=== PATIENT | female | born 1985 ===

== ENCOUNTER 2017-01-31 01:53 | Emergency (ER) | payer OTHER ==
[2017-01-31 03:12] VITALS: BMI 58.7
[2017-01-31] MEDS ORDERED: Betamethasone Soluspan 30 mg/5mL Inj Susp IM ONE (03:31)
[2017-01-31 03:37] LABS: RBC URINE 3 /hpf (0-3); URINE BACTERIA RARE (<OCC); URINE BILIRUBIN NEGATIVE (NEGATIVE); URINE BLOOD NEGATIVE (NEGATIVE); URINE COLOR STRAW (YELLOW); URINE GLUCOSE (UA) NEG (Normal); URINE KETONE NEGATIVE (NEGATIVE); URINE LEUKOCYTE ESTERASE LARGE Leu/uL (Negative); URINE PROTEIN NEGATIVE (NEGATIVE); URINE UROBILINOGEN 0.2-1.0 mg/dL (0.2-1.0); WBC CLUMPS FEW /hpf; WBC URINE 43 /hpf (0-5)
[2017-01-31] MEDS ORDERED: Magnesium Sul 40GM/1L SW 1,000 ML IV ONE (03:56)
[2017-01-31] MEDS ORDERED: Magnesium Sulfate 2 GM in Sodium Chloride 0.9% 100 ML IVPB ONE (04:00)
[2017-01-31 04:21] LABS: BASO % 0.3 % (0.0-2.0); EOS # 0.2 K/uL (0.0-0.7); EOS % 1.3 % (0.0-4.0); HEMATOCRIT 35.1 % (34.0-47.0); LYMPH % 7.3 % (20.0-40.0); MEAN CORPUSCULAR HGB CONC 32.9 g/dL (33.0-37.0); MEAN PLATELET VOLUME 8.9 fl (7.2-11.7); MONO # 1.1 K/uL (0.0-0.8); MONO % 7.5 % (0.0-10.0); NEUT # 11.9 K/uL (1.8-7.0); NEUT % 83.6 % (50.0-75.0); PLATELET COUNT 299 K/uL (130-400); RED CELL DISTRIBUTION WIDTH 15.7 % (11.5-14.5)
[2017-01-31 04:26] LABS: WHITE BLOOD COUNT 14.3 K/uL (4.8-10.8)
[2017-01-31] MEDS ORDERED: Lactated Ringer's 1,000 ML IV SCH (04:30)
--- NOTE | 2017-01-31 04:58 | US ---
EXAM: US , Transvaginal CLINICAL HISTORY: 31 years old, female; Pain; complicated by abdominal or pelvic pain; Gestational age or lmp: 26 weeks; ; Additional info: Pelvic pain/cervical dilation TECHNIQUE: Real-time endovaginal obstetrical ultrasound of the maternal pelvis with image documentation. Endovaginal imaging was used for better evaluation of the cervix. EXAM DATE/TIME: 01/31/2017 3:41 AM COMPARISON: No relevant prior studies available. FINDINGS: A limited exam only was performed, specifically to evaluate the cervix. The cervix is abnormally shortened, measuring 1.4 cm in length transvaginally. There is evidence of funneling. The upper cervix is fluid-filled and dilated, measuring 4 cm in width. Findings are compatible with cervical incompetence. No parts are seen within the upper cervix. The external cervical os appears closed. The fetus was not evaluated. The anatomy was not evaluated. IMPRESSION: Findings compatible with cervical incompetence. The cervix is abnormally shortened, 1.4 cm in length, and there is evidence of funneling. See above for remaining findings.
[2017-01-31 05:00] LABS: EOSINOPHIL 1 % (0-7); NEUTROPHIL 82 % (42-75); TOTAL CELLS COUNTED 100
--- NOTE | 2017-01-31 05:39 | OBHP ---
Datetime: 01/31/2017 02:30 IP Adm Impression: , intrauterine ; No Active Labor; Intact Membranes IP Admit Plan: Observation/Evaluation; Discharge home Admit Comment, IP Provider: 31 yr at 26wks GA , morbidly obese presents to [facility] with complaint of lower lateral pelvic pain which is intermittent early today and at its worse is a 7/10. Denies vag inal bleeding, LOF, ctx's. + movement. Patient obtains routine care with Dr. Sears , denies any complications or abnormal labs/tests with this . Patient has no other concerns or complaints at this time. care/course: per pt: morbidly obese- gained 21 lbs thus far, no complications/abnormal la bs or tests OBHx: none PMHx: none SurgHx: none SocHx: denies Etoh/smoking/drugs Meds: PNV, aspirin Allergies: Penicillin (patient states no hx of this allergy but saw this written in her chart at n ew PCP's) PE: VSS, patient in no acute distress Cardiac: S1 S2 normal, no murmurs/rubs or gallops Lungs: CTABL Abd: very obese, gravid, non-tender Ext: bilateral pitting edema +1 SSE: cervix short/dilated 1cm/membranes visualized A: IUP at 26wks, not in active labor, P: -Magnesium 4gm loading dose -Magnesium sulfate 2gm maintenance dose -Betamethasone 12mg IM -urinalysis - fibronectin -continuous monitoring -monitor labor progress Marni Sears M.D. PGY1 OB Hospitalist Addendum: Pt seen and examined by me. 31 yo G1 at 26 wks w/ pelvic pain, ctxns ev zoe 2-4 minutes. Speculum exam revealed bulging membranes, VE 1/short. CL 1.4 cm w/ funneling. FFN positive. Case discussed w/ Dr. Kearns. IV magnesium started. 1st dose of Betamethasone given. Pt to be [facility]. ([facility]) Pelvic Type - PN: Adequate Extremities - PN: Normal Abdomen - PN: Normal Back - PN: Normal Lungs - PN: Normal Heart - PN: Normal Thyroid - PN: Normal Neurologic - PN: Normal HEENT - PN: Normal General - PN: Normal FHR - Baseline A Provider: 140 Comments, ACOG Physical Exam: SSE: cervix short/dilated 1cm/membranes visualized Gestation - Est Wks by US: 26.0 Vital Signs Provider: Reviewed; Within Normal Limits IP Chief Complaint: Maternal discomfort NICHD Variability Prov Fetus A: Moderate 6-25bpm NICHD Accel Fetus A IP Provider: [id number] FHR Category Provider Fetus A: Category I NICHD Decel Fetus A IP Provider: None Dilatation, Provider: 0 Genitourinary Exam: Normal DTRs - PN: Normal
--- NOTE | 2017-01-31 06:58 | OBHP ---
Datetime: 01/31/2017 02:30 Admit Comment, IP Provider: 31 yr at 26wks GA , morbidly obese presents to [facility] with complaint of lower lateral pelvic pain which is intermittent early today and at its worse is a 7/10. Denies vag inal bleeding, LOF, ctx's. + movement. Patient obtains routine care with Dr. Sears , denies any complications or abnormal labs/tests with this . Patient has no other concerns or complaints at this time. care/course: per pt: morbidly obese- gained 21 lbs thus far, no complications/abnormal la bs or tests OBHx: none PMHx: none SurgHx: none SocHx: denies Etoh/smoking/drugs Meds: PNV, aspirin Allergies: Penicillin (patient states no hx of this allergy but saw this written in her chart at n ew PCP's) PE: VSS, patient in no acute distress Cardiac: S1 S2 normal, no murmurs/rubs or gallops Lungs: CTABL Abd: very obese, gravid, non-tender Ext: bilateral pitting edema +1 SSE: cervix short/dilated 1cm/membranes visualized A: IUP at 26wks, not in active labor, P: -Magnesium 4gm loading dose -Magnesium sulfate 2gm maintenance dose -Betamethasone 12mg IM -urinalysis - fibronectin -continuous monitoring -monitor labor progress Marni Sears M.D. PGY1 OB Hospitalist Addendum: Pt seen and examined by me. 31 yo G1 at 26 wks w/ pelvic pain, ctxns ev zoe 2-4 minutes. Speculum exam revealed bulging membranes, VE 1/short. CL 1.4 cm w/ funneling. FFN positive. Case discussed w/ Dr. Kearns. IV magnesium started. 1st dose of Betamethasone given. Pt to be transferred to [facility]. (ES) Addendum: Pt reports that her water broke on the bathroom floor. Nitrazine positive. Pt denies i ncreased pressure and pain. Pt sent to [facility]. (ES)
== END 2017-01-31 06:20 | disposition home or self-care (01) ==
LOC: H.EROB2 01:53
DX: O47.02 False labor before 37 completed weeks of gestation, second trimester (principal); Z3A.26 26 weeks gestation of pregnancy; O99.212 Obesity complicating pregnancy, second trimester; O26.872 Cervical shortening, second trimester

== ENCOUNTER 2018-10-04 11:34 | Emergency (ER) | payer OTHER ==
[2018-10-04 14:48] VITALS: BMI 50.3
[2018-10-04] MEDS ORDERED: Lactated Ringer's 1,000 ML IV SCH (15:00)
[2018-10-04 15:18] LABS: BASO % 0.2 % (0.0-2.0); EOS # 0.2 K/uL (0.0-0.7); EOS % 1.6 % (0.0-4.0); HEMOGLOBIN 11.8 g/dL (12.0-16.0); LYMPH % 8.9 % (20.0-40.0); MEAN CELL VOLUME 82.6 fl (81.0-99.0); MEAN CORPUSCULAR HEMOGLOBIN 26.2 pg (27.0-31.0); MEAN CORPUSCULAR HGB CONC 31.7 g/dL (33.0-37.0); MEAN PLATELET VOLUME 9.5 fl (7.2-11.7); MONO # 0.7 K/uL (0.0-0.8); MONO % 6.6 % (0.0-10.0); NEUT # 9.3 K/uL (1.8-7.0); NEUT % 82.7 % (50.0-75.0); NRBC % 0.2 % (0.0-0.0); PLATELET COUNT 298 K/uL (130-400); RBC 4.52 Mil/uL (3.80-5.20); WHITE BLOOD COUNT 11.2 K/uL (4.8-10.8)
[2018-10-04 16:43] LABS: BASOPHIL 1 % (0-2); EOSINOPHIL 2 % (0-7); LYMPHOCYTE 10 % (20-50); MONOCYTE 6 % (0-10); NEUTROPHIL 81 % (42-75); TOTAL CELLS COUNTED 100
[2018-10-04 16:44] LABS: ANISOCYTOSIS SLIGHT; LARGE PLATELETS PRESENT; PLATELET ESTIMATE NORMAL (NORMAL)
--- NOTE | 2018-10-04 17:42 | OBHP ---
Datetime: 10/04/2018 12:48 IP Adm Impression: , intrauterine IP Admit Plan: Observation/Evaluation Admit Comment, IP Provider: 32 YO with IUP at EGA 36 wks, who presents to [facility] for removal o f cerclage. Patient today states feeling well, denies VB, LOF, CONTX, LANDERS, dizziness, CP, SOB, dysuria , chills, fever, or other acute complaint at this time. Patient has h/o delivery of her first child at GA 26 wks 20 MO. Abdifatah reports she is receiving Progesterone shots once a week at this ti me. Patient reports +FM. ROS : unremarkable, except as per HPI. provider: Dr Sears. PMH: Obesity FMH: Father HTN SURG: Bariatric Sx ALL: NKA MEDS: PN Vitamin, Aspirin 81 PO QD LABS: Patient reports normla labs in currnt . PE GEN: NAD HEENT: NCAT RESP: CTA b/l CV: RRR, S1 S2 present normal ABD: Gravid EXT: LE edema, Apoorva's neg A/P 32 YO with IUP at EGA 36 wks, who presents to [facility] for removal of cerclage. Plan -Maternal VS monitoring -FHR monitoring -Cerclage removal -Observation and D/C planing Case seen and discussed with attending Dr Lorne Adair MD PGY1 Addendum by Dr. Pradhan: I have evalauted the patient independently and I agree with the above. See dictation Comments, ACOG Physical Exam: see triage comments IP Hx Assessment: The History has been Reviewed and is Current EGA AdmitDate IP: 36.2 Vital Signs Provider: Reviewed; Within Normal Limits IP Chief Complaint: Other
--- NOTE | 2018-10-04 19:09 | OBPN ---
Datetime: 10/04/2018 18:05 Contraction Comments Provider: Occasional FHR - Baseline A Provider: 120 IP Progress Note Comment: Patient re-evalauted about an hour after procedure finished - reports no a dditional signs/symptoms of labor. Occasional mild cramping, scant bleeding noted, no leaking, +FM VE= 120 mod barry, +accels no decels TOCO = occasional contractions VE = 1/thick/high A/P 1. patient not progressing in pre-term labor. Patient unchanged 1cm - FHR = 120 reactive and contr acting irregularly. Scant bleeding noted, nml considering extent of procedure. 2. Discussed with patient discharge instructions, to follow up in office next week. Pre-term labor precations also given 3. Discharge home once meets anesthesia criteria Vital Signs Provider: Reviewed; Within Normal Limits NICHD Accel Fetus A IP Provider: [id number] NICHD Variability Prov Fetus A: Moderate 6-25bpm Dilatation, Provider: 1 Effacement, Provider: long Station, Provider: high NICHD Decel Fetus A IP Provider: None
--- NOTE | 2018-10-04 19:11 | OBDCSUM ---
Datetime: 10/04/2018 18:49 Discharged to, Provider: Home Follow up at, Provider: Disch Instr Activity: Normal activity Disch Instr Diet: Regular Discharge Time: 10/04/2018 19:00 Follow up in weeks, Provider: to call for appointment Disch Referrals: None Discharge Diagnosis Prov Other: cerclage removal
[2018-10-05 00:18] VITALS: BP 131/80; PULSE 86; RESP 18; TEMP 98.1; O2SAT 98
--- NOTE | 2018-10-05 05:13 | PROCN ---
DATE OF PROCEDURE: 10/04/2018 ATTENDING PHYSICIAN: Lata Pradhan MD ASSISTANTS: Félix Proctor MD and Clem Kearns MD PROCEDURE: Cerclage removal. ANESTHESIA: Spinal by Dr. Mello. ESTIMATED BLOOD LOSS: Minimal. COMPLICATIONS: None. CONDITION: Stable. INDICATION: This is a 32-year-old G2, P1 0-0-1 at 36 weeks and 2 days. The patient had a history of a 26-week delivery with her first child. This had a prophylactic cerclage placed at [address] Kearns. The patient also was receiving 17-hydroxyprogesterone shots weekly. The patient was being managed by Dr. Sears in the [facility] office in [place]. The patient at this point now is 36 weeks and 2 days gestation. The patient presented for a scheduled cerclage removal in the hospital. The patient was placed on the monitor. Initially, the baby's heart rate was found to be about 140, moderate variability with accels, no decels, no contractions. The patient had no signs or symptoms of labor. No other pertinent signs or symptoms. The patient was prepped and draped in a normal fashion for cerclage removal in the labor and delivery room. A sterile speculum was placed in the vagina. There was increased difficulty in locating the Prolene stitches due to body habitus and the stitch being buried in the cervix. Dr. Proctor at this point assisted me in the labor and delivery room. We were able to isolate with the ring forceps. The first stitch which we were able to resect under the last knot and removed in entirety. We also showed the suture to the patient. We then proceeded. We spent considerable amount of time trying to locate the second stitch which it was buried in the cervical mucosa. It is very difficult to isolate it and resect it. At this point, we terminated all procedure and started to consult M for further treatment. MFM advised that spinal anesthesia could be used to help relax the patient and in order to isolate the second stitch. DESCRIPTION OF PROCEDURE: The patient was taken to the OR. Spinal anesthesia was placed without difficulty. IV fluids were running. The patient was prepped and draped in a normal fashion, and the legs were placed in the candy-cane stirrups. A weighted speculum was placed in the posterior fornix. was used to aid with visualization inferiorly. Dr. Kearns was also present at this point of the procedure. The Prolene stitch was visualized, was found to be in the cervical mucosa but with assistance with Dr. Kearns, Dr. Proctor and myself was able to be isolated with a ring forceps and then removed in its entirety underneath the last knot, it was cut and then removed. The second stitch was also shown to the patient. The patient between first and second stitch removal had about total 75 mL of vaginal bleeding. The patient was also examined at this point and found to have 1 cm dilated. The patient did not verbalize with considered amount of discomfort, but did say that had occasional cramp. The bladder was also drained at this point about 75 mL of concentrated urine with a straight catheter. The procedure was now terminated. All instruments were removed from the vagina. The patient was cleaned and was brought back to Labor and Delivery where she was observed for extended period of time, found not to be in labor and discharged home with instructions for labor signs and symptoms and to follow up in the office in a week. All questions were answered. There were no other complications. Lata Pradhan MD
== END 2018-10-04 19:00 | disposition home or self-care (01) ==
LOC: H.EROB2 11:34
DX: O26.873 Cervical shortening, third trimester (principal); Z3A.36 36 weeks gestation of pregnancy
CPT/HCPCS: 85025; 86850; 86900; 99283; J3010; J7120

== ENCOUNTER 2018-10-19 19:59 | Inpatient (IN) | payer OTHER ==
[2018-10-19 20:12] VITALS: BMI 49.9
[2018-10-19] MEDS ORDERED: Lactated Ringer's 1,000 ML IV ONE (20:37)
[2018-10-19] MEDS ORDERED: Lactated Ringer's 1,000 ML IV SCH (20:45)
[2018-10-19 20:58] LABS: BASO # 0.1 K/uL (0.0-0.2); BASO % 0.5 % (0.0-2.0); EOS # 0.2 K/uL (0.0-0.7); EOS % 1.2 % (0.0-4.0); HEMOGLOBIN 12.1 g/dL (12.0-16.0); LYMPH % 6.8 % (20.0-40.0); MEAN CELL VOLUME 82.7 fl (81.0-99.0); MEAN CORPUSCULAR HGB CONC 32.6 g/dL (33.0-37.0); MEAN PLATELET VOLUME 9.4 fl (7.2-11.7); MONO % 6.5 % (0.0-10.0); PLATELET COUNT 315 K/uL (130-400); RBC 4.48 Mil/uL (3.80-5.20); WHITE BLOOD COUNT 15.3 K/uL (4.8-10.8)
[2018-10-19] MEDS ORDERED: Oxytocin 30 UNIT 30 UNITS/500 ML BAG IV ONE ×2 (21:01→21:36)
[2018-10-19 21:10] LABS: ALBUMIN 3.5 g/dL (3.5-5.0); ALT/SGPT 18 U/L (9-52); AST/SGOT 21 U/L (14-36); BLOOD UREA NITROGEN 11 mg/dl (7-17); CALCIUM 9.3 mg/dL (8.4-10.2); GFR NON-AFRICAN AMERICAN > 60; URIC ACID 3.9 mg/Dl (2.2-7.5)
[2018-10-19] MEDS ORDERED: Lidocaine Hydrochloride 5 ML INJ ONE (21:29)
[2018-10-19] MEDS ORDERED: OXYTOCIN/0.9 % NS 20 UNIT/1,000 ML BAG IV ONE (21:36)
[2018-10-19 21:42] LABS: EOSINOPHIL 2 % (0-7); LYMPHOCYTE 10 % (20-50); MONOCYTE 5 % (0-10); NEUTROPHIL 83 % (42-75); PLATELET ESTIMATE NORMAL (NORMAL); TOTAL CELLS COUNTED 100
[2018-10-19] MEDS ORDERED: Fentanyl/Bupivacaine HCl 250 ML EPI ONE (21:43)
[2018-10-19 21:44] LABS: ANISOCYTOSIS SLIGHT; LARGE PLATELETS PRESENT; OVALOCYTES MODERATE
[2018-10-19 22:28] LABS: SQUAMOUS EPITHIAL 35 /hpf (0-5); URINE BACTERIA MOD (<OCC); URINE BILIRUBIN NEGATIVE (NEGATIVE); URINE BLOOD LARGE (NEGATIVE); URINE CLARITY CLOUDY (Clear); URINE COLOR AMBER (YELLOW); URINE GLUCOSE (UA) NEG (NEGATIVE); URINE LEUKOCYTE ESTERASE SMALL Leu/uL (Negative); URINE PROTEIN 100 mg/dL (NEGATIVE)
[2018-10-20] MEDS ORDERED: Lidocaine Hydrochloride 5 ML INJ ONE (00:37)
[2018-10-20] MEDS ORDERED: Oxycodone/Acetaminophen 5/325 mg Tab PO PRN ×4 (00:55→04:10)
[2018-10-20] MEDS ORDERED: Benzocaine/Menthol SPRAY TOP PRN ×2 (00:55→04:10)
--- NOTE | 2018-10-20 01:02 | OBHP ---
Datetime: 10/19/2018 20:12 IP Adm Impression: Term, intrauterine ; No Active Labor; Intact Membranes IP Adm Impression Other: Latent phase of labor IP Admit Plan: Admit to unit; Initiate labor protocol; Initiate labor augmentation protocol Admit Comment, IP Provider: 32 y/o morbidly obese female at 38.3 wk GA presents to L_D for s cheduled induction. She was seen by Dr. Sears in office today and was found to have oligohydramni os and 4 cm cervical dilatation, and was advised to have IOL. Patient endorses feeling movement s. She reports vaginal spotting. She denies chest pain, SOB, headache, visual changes, n/v. OB: Dr. eSars Pmhx: denies Obhx: 1 pre-term at 26 wks Famhx: Father has HTN Surghx: Gastric sleeve 2016 SocialHx: Former smoker 1 cig x15 yrs, quit 9 months ago. Denies etoh/recreational drug use during HomeRx: vitamins. Was recieving [facility] weekly until 10/04 Allergies: NKDA ROS: negative except per HPI Physical Exam: Gen: uncomfortable, no acute distress Heart: S1S2 present, normal RRR Lungs: normal resp effort, clear to auscultation bilaterally Abd: Gravid, morbidly obese, soft, non-tender Extremities: no swelling/erythema/tenderness Assessment and Plan: 32 y/o morbidly obese female 38.3 IUP found to have oligohydramnios this AM HIV neg, HBsAg neg, RPR neg, Rubella immune. GBS done today; no results. 4cm cervical dilatation per Dr. Sears at 5pm today Elevated BPs: 159/95, 142/88, 182/83, 170/95 Admit patient to L_D [facility] and NST FHR monitoring CBC, type and screen LR 1L IV bolus and 1L @125mL/hr Will check U/A, CMP, uric acid. Will consider starting pitocin Can have epidural, anesthesiology consulted. Discussed case w/ attending, DrBrisa Gutierrez pgyi OB Hospitalist on-call. She was seen earlier today and noted to be 4cm. She had CTX since [facility] office. Some bloody show. PNC: CP Dr Sears - GBS done today at 38w; prior visit 35w. A: Early labor - latnet phase at 38w/morbid obesity PLAN: admit; disucssion with pt abotu pain management, labor, augmentatoin, delivye and . She understood and her questoins answered. will start Piotcin augmentatoin Pelvic Type - PN: Not Done Extremities - PN: Normal Abdomen - PN: Normal Back - PN: Not Done Breast - PN: Not Done Lungs - PN: Normal Heart - PN: Normal Thyroid - PN: Not Done Neurologic - PN: Not Done HEENT - PN: Not Done General - PN: Not Done FHR - Baseline A Provider: 145 Comments, ACOG Physical Exam: SVE 4cm /80 / -2 Gestation - Est Wks by US: 38.3 IP Hx Assessment: The History has been Reviewed and is Current EGA AdmitDate IP: 38.3 Vital Signs Provider: Reviewed Vital Signs Provider Details: elevated BP readings (159/95, 142/88, 182/83) IP Indication for Induction: Oligohydramnios IP Chief Complaint: Scheduled induction of labor; Other NICHD Variability Prov Fetus A: Moderate 6-25bpm NICHD Accel Fetus A IP Provider: [id number] FHR Category Provider Fetus A: Category I NICHD Decel Fetus A IP Provider: None Genitourinary Exam: Not Done DTRs - PN: Not Done Datetime: 10/04/2018 18:05 Contraction Comments Provider: Occasional Dilatation, Provider: 1 Effacement, Provider: long Station, Provider:
[2018-10-20] MEDS ORDERED: Pneumococcal 23-Valent Vaccine IM ONE (09:00)
[2018-10-20] MEDS ORDERED: Multivitamin With Minerals Tab PO SCH (09:00)
[2018-10-20] MEDS: Multivitamin With Minerals Tab PO SCH (09:04)
--- NOTE | 2018-10-20 09:39 | OBPPN ---
Datetime: 10/20/2018 09:19 PP Pain Prov: Within normal limits PP Nausea Prov: Denies PP Flatus Prov: Yes PP Breasts Prov: Not Done PP Heart Prov: Normal PP Lungs Prov: Normal PP Abdomen/Uterus Prov: Normal PP Lochia Prov: Not Done PP Vulva/Perineum Prov: Not Done PP CVA Tenderness Prov: Normal PP Extremities Prov: Normal PP Impression Prov: Normal progression PP Progress Note Prov: patient doing well ambulating tolerating diet vss uterus firm PPD1 oobtc, regular diet, motrin as needed Vital Signs Provider PP: Reviewed
[2018-10-20 11:59] LABS: BASO % 0.3 % (0.0-2.0); EOS # 0.1 K/uL (0.0-0.7); EOS % 0.5 % (0.0-4.0); HEMOGLOBIN 11.1 g/dL (12.0-16.0); LYMPH # 1.5 K/uL (1.0-4.3); MEAN CORPUSCULAR HGB CONC 32.5 g/dL (33.0-37.0); MEAN PLATELET VOLUME 9.7 fl (7.2-11.7); MONO # 1.6 K/uL (0.0-0.8); NEUT # 13.1 K/uL (1.8-7.0); NEUT % 80.2 % (50.0-75.0); NRBC % 0.3 % (0.0-0.0); RBC 3.96 Mil/uL (3.80-5.20); RED CELL DISTRIBUTION WIDTH 14.7 % (11.5-14.5); WHITE BLOOD COUNT 16.4 K/uL (4.8-10.8)
[2018-10-21] MEDS: Multivitamin With Minerals Tab PO SCH (08:53)
--- NOTE | 2018-10-22 08:15 | OBPPN ---
Datetime: 10/21/2018 08:10 PP Pain Prov: Within normal limits PP Nausea Prov: Denies PP Flatus Prov: Yes PP Breasts Prov: Normal PP Heart Prov: Normal PP Lungs Prov: Normal PP Abdomen/Uterus Prov: Normal PP Lochia Prov: Normal PP Vulva/Perineum Prov: Normal PP CVA Tenderness Prov: Normal PP Extremities Prov: Normal PP C/S Incision Prov: Not Applicable PP Progress Prov: Normal PP Comments Phys Exam Prov: Abdomen soft, nontender, nondistended Uterus firm, below umbilicus No deep calf tenderness bilaterally PP Impression Prov: Normal progression PP Plan Prov: Continue present management PP Progress Note Prov: day #1 status post , patient recovering well Continue current management Anticipate discharge home tomorrow IP PP Procedures: None Vital Signs Provider PP: Reviewed; Within Normal Limits
[2018-10-22] MEDS: Multivitamin With Minerals Tab PO SCH (09:31)
--- NOTE | 2018-10-22 10:51 | OBPPN ---
Datetime: 10/22/2018 10:46 PP Pain Prov: Within normal limits PP Nausea Prov: Denies PP Flatus Prov: Yes PP BM Prov: Yes PP Breasts Prov: Normal PP Heart Prov: Normal PP Lungs Prov: Normal PP Abdomen/Uterus Prov: Normal PP Lochia Prov: Normal PP Vulva/Perineum Prov: Normal PP CVA Tenderness Prov: Normal PP Extremities Prov: Normal PP Progress Note Prov: H/H A: S.P day 2 PLAN: dischsarge home and follow up in 6w Vital Signs Provider PP: Reviewed; Within Normal Limits
[2018-10-22 22:28] VITALS: BP 140/81; PULSE 76; RESP 20; TEMP 98; O2SAT 99
== END 2018-10-22 18:00 | disposition home or self-care (01) | DRG 373 ==
LOC: H.L&D 20:26 → H.OB/GYN 10-20 03:15
PROVIDERS: ADMIT Obstetrics & Gynecology; ATTEND Obstetrics & Gynecology
PROC: 0HQ9XZZ Repair Perineum Skin, External Approach (ICD-10-PCS; principal; 2018-10-19)
PROC: 4A1HXCZ Monitoring of Products of Conception, Cardiac Rate, External Approach (ICD-10-PCS; 2018-10-19)
DX: O41.03X0 Oligohydramnios, third trimester, not applicable or unspecified (principal); E66.01 Morbid (severe) obesity due to excess calories; O99.214 Obesity complicating childbirth; Z37.0 Single live birth; Z3A.38 38 weeks gestation of pregnancy; Z87.891 Personal history of nicotine dependence; O70.0 First degree perineal laceration during delivery